=== PATIENT | male | born 1970 | race Caucasian/White ===

== ENCOUNTER → 2019-05-15 11:01 | Outpatient (BNVA) | payer OTHER, SELFPAY | PROVIDERS: Visit Provider Nurse Practitioner Family | DX: Z00.00 Encounter for general adult medical examination without abnormal findings (principal); Z13.6 Encounter for screening for cardiovascular disorders; Z13.29 Encounter for screening for other suspected endocrine disorder; G47.33 Obstructive sleep apnea (adult) (pediatric); Z68.42 Body mass index [BMI] 45.0-49.9, adult; J06.9 Acute upper respiratory infection, unspecified | CPT/HCPCS: 36416; 80053; 80061; 82962; 84439; 84443 ==

== ENCOUNTER → 2020-02-03 11:59 | Outpatient (BNVA) | payer OTHER, SELFPAY | PROVIDERS: Visit Provider Nurse Practitioner Family | DX: L02.419 Cutaneous abscess of limb, unspecified (principal) | CPT/HCPCS: 87070; 87077; 87184 ==

== ENCOUNTER → 2020-02-26 10:36 | Outpatient (BNVA) | payer OTHER, SELFPAY | PROVIDERS: Visit Provider Nurse Practitioner Family | DX: R35.0 Frequency of micturition (principal); E11.9 Type 2 diabetes mellitus without complications; R39.9 Unspecified symptoms and signs involving the genitourinary system; E66.01 Morbid (severe) obesity due to excess calories | CPT/HCPCS: 36416; 80053; 80061; 81000; 82962; 83036 ==

== ENCOUNTER → 2020-03-10 13:48 | Outpatient (BNVA) | payer OTHER, SELFPAY | PROVIDERS: Visit Provider Nurse Practitioner Family | DX: E11.9 Type 2 diabetes mellitus without complications (principal); E66.01 Morbid (severe) obesity due to excess calories | CPT/HCPCS: 36416; 81000; 82962 ==

== ENCOUNTER → 2020-04-13 09:08 | Outpatient (BNVA) | payer OTHER, SELFPAY | PROVIDERS: Visit Provider Nurse Practitioner Family | DX: E11.9 Type 2 diabetes mellitus without complications (principal); E66.01 Morbid (severe) obesity due to excess calories | CPT/HCPCS: 80053 ==

== ENCOUNTER → 2020-05-22 14:45 | Outpatient (BNVA) | payer OTHER, SELFPAY | PROVIDERS: Visit Provider Nurse Practitioner Family | DX: E11.9 Type 2 diabetes mellitus without complications (principal) | CPT/HCPCS: 83036 ==